=== PATIENT | female | born 1950 | race Caucasian/White ===

== ENCOUNTER → 2017-12-05 | Outpatient (CLI) | payer OTHER | LOC: CIMAGING 10:10 | PROVIDERS: ATTEND Family Medicine Geriatric Medicine | DX: R41.89 Other symptoms and signs involving cognitive functions and awareness (principal); R42 Dizziness and giddiness; R41.3 Other amnesia | CPT/HCPCS: 70450-PO ==

== ENCOUNTER → 2017-12-08 | Outpatient (CLI) | payer OTHER | LOC: BMCIMAGING 14:43 | PROVIDERS: ATTEND Family Medicine Geriatric Medicine | DX: Z13.820 Encounter for screening for osteoporosis (principal); M85.89 Other specified disorders of bone density and structure, multiple sites; Z78.0 Asymptomatic menopausal state ==

== ENCOUNTER 2017-12-14 15:06 | Emergency (ER) | payer OTHER ==
--- NOTE | 2017-12-14 15:24 | EDPHY ---
HPI/HX/ROS/PE/MDM Narrative: CHIEF COMPLAINT: Dizziness, nausea HPI: The patient is a 67 y/o female complaining of dizziness and nausea that began yesterday afternoon. Several weeks ago she had similar episodes, where she felt like the room was spinning around her; these symptoms eventually subsided. On she saw her PCP, Dr. Thornton, and had a normal head CT and blood work. Today, her symptoms are not improving and the nausea is worse than it was several weeks ago. She still feels like the room is spinning and her symptoms worsen when she moves her head. Currently she is denying pain. Denies history of CAD or stroke. Denies neck pain, sore throat, abdominal pain, numbness, paresthesias, or fever. REVIEW OF SYSTEMS: Aside from elements discussed in the HPI, a comprehensive 10-point review of systems was reviewed and is negative. PMH: Denies SOCIAL HISTORY: Single, lives in [place], retired PHYSICAL EXAM: General: Patient is alert, in no acute distress. ENT: Eyes are normal to inspection, no nystagmus. ENT inspection normal. No nystagmus. Neck: Normal inspection. Full range of motion. Respiratory: No respiratory distress. Breath sounds normal bilaterally. Cardiovascular: Regular rate and rhythm. Strong peripheral pulses. Normal cap refill. Abdomen: The abdomen is nontender to palpation. There are no peritoneal signs. There are normal bowel sounds. Back: Normal to inspection. No tenderness to palpation. Skin: Normal color. No rash. Warm and dry. Extremities: Normal appearance. Full range of motion. Neuro: Oriented x3. Normal motor function. Normal sensory function. Normal finger to nose, heel to cruz and rapid alternating movements bilaterally. Portions of this note were transcribed by an ED scribe. I personally performed the history, physical exam, and medical decision making; and confirm the accuracy of the information in the transcribed note. ED Course: 1550: EKG was ordered and interpreted by myself as Trigeminy, otherwise sinus, no ST changes. Please see [employer] system for official reading. 1703: Reassessed patient, she is feeling better after 1L IV NS and 25mg PO Meclizine. I have discussed laboratory findings, which are normal. I have advised her to take Meclizine as prescribed. Return precautions provided; patient is comfortable with this plan. MDM: This patient presents with classic symptoms of BPPV. She shows no sign of cerebellar CVA and has had a recent negative CTH as an outpatient. Her symptoms were improved significantly with meclizine and IVNS and zofran. I think she is safe for continued outpatient management. - Data Points Laboratory Results: Laboratory Results 12/14/17 15:40 12/14/17 15:40 12/14/17 12/14/17 15:40 15:40 WBC 5.23 10^3/uL 10^3/uL (3.80-9.50) RBC 4.50 10^6/uL 10^6/uL (4.18-5.33) Hgb 13.8 g/dL g/dL (12.6-16.3) Hct 41.9 % % (38.0-47.0) MCV 93.1 fL fL (81.5-99.8) MCH 30.7 pg pg (27.9-34.1) MCHC 32.9 g/dL g/dL (32.4-36.7) RDW 12.5 % % (11.5-15.2) Plt Count 178 10^3/uL 10^3/uL (150-400) MPV 9.8 fL fL (8.7-11.7) Neut % (Auto) 85.6 % H % (39.3-74.2) Lymph % (Auto) 11.7 % L % (15.0-45.0) Burke % (Auto) 1.9 % L % (4.5-13.0) Eos % (Auto) 0.0 % L % (0.6-7.6) Baso % (Auto) 0.6 % % (0.3-1.7) Nucleat RBC Rel Count 0.0 % % (0.0-0.2) Absolute Neuts (auto) 4.48 10^3/uL 10^3/uL (1.70-6.50) Absolute Lymphs (auto) 0.61 10^3/uL L 10^3/uL (1.00-3.00) Absolute Monos (auto) 0.10 10^3/uL L 10^3/uL (0.30-0.80) Absolute Eos (auto) 0.00 10^3/uL L 10^3/uL (0.03-0.40) Absolute Basos (auto) 0.03 10^3/uL 10^3/uL (0.02-0.10) Absolute Nucleated RBC 0.00 10^3/uL 10^3/uL (0-0.01) Immature Gran % 0.2 % % (0.0-1.1) Immature Gran # 0.01 10^3/uL 10^3/uL (0.00-0.10) Sodium 138 mEq/L mEq/L (135-145) Potassium 3.6 mEq/L mEq/L (3.5-5.2) Chloride 102 mEq/L mEq/L (97-110) Carbon Dioxide 24 mEq/l mEq/l (22-31) Anion Gap 12 mEq/L mEq/L (8-16) BUN 16 mg/dL mg/dL (7-23) Creatinine 0.6 mg/dL mg/dL (0.6-1.0) Estimated GFR > 60 Glucose 122 mg/dL H mg/dL (70-100) Calcium 9.1 mg/dL mg/dL (8.5-10.4) Troponin I < 0.012 ng/mL ng/mL (0.000-0.034) Medications Given: Discontinued Medications Sodium Chloride (Ns) 1,000 mls @ 0 mls/hr IV EDNOW ONE; Wide Open PRN Reason: Protocol Stop: 12/14/17 15:30 Last Admin: 12/14/17 15:47 Dose: 1,000 mls Meclizine HCl (Meclizine Hcl) 25 mg PO EDNOW ONE Stop: 12/14/17 15:30 Last Admin: 12/14/17 15:47 Dose: 25 mg General Time Seen by Provider: 12/14/17 15:20 Initial Vital Signs: Initial Vital Signs Temperature (C) 36.4 C 12/14/17 15:13 Heart Rate 80 12/14/17 15:13 Respiratory Rate 16 12/14/17 15:13 Blood Pressure 143/86 H 12/14/17 15:13 O2 Sat (%) 95 12/14/17 15:13 O2 Delivery Mode Room Air Allergies/Adverse Reactions: No Known Allergies Allergy (Unverified 12/14/17 15:13) Home Medications: Medication Instructions Recorded Meclizine HCl [Meclizine HCl 25 mg 25 - 50 mg PO BID PRN #14 tab 12/14/17 (RX,OTC)] Departure - Departure Disposition: Home, Routine, Self-Care Clinical Impression: Vertigo Condition: Good Instructions: Vertigo (ED) Additional Instructions: Use meclizine as prescribed. Drink plenty of fluids. Keep your appointment tomorrow. Return to the emergency department immediately for headache, numbness , weakness, severe vertigo, neck pain, inability to tolerate fluids by mouth or other worsening of condition. If symptoms persist for more than 48 hours, followup with your primary care physician and/or a neurologist for further evaluation. Referrals: Perla Thornton MD [Primary Care Provider] - As per Instructions Prescriptions: Meclizine HCl [Meclizine HCl 25 mg (RX,OTC)] 25 - 50 mg PO BID PRN #14 tab PRN Reason: vertigo
[2017-12-14] MEDS ORDERED: NS 1,000 ML IV ONE (15:29)
[2017-12-14] MEDS ORDERED: MECLIZINE HCL 25 MG TAB PO ONE (15:29)
[2017-12-14] MEDS ORDERED: MECLIZINE HCL 25 MG TAB ONE (15:45)
[2017-12-14 15:48] LABS: PLATELET COUNT 178 10^3/uL (150-400)
[2017-12-14 15:50] VITALS: RESP 16; TEMP 97.5
--- NOTE | 2017-12-14 15:52 | CPEKG ---
Heart Rate: 62 RR Interval: 968 P-R Interval: 200 QRSD Interval: 98 QT Interval: 412 QTC Interval: 419 P Streetman: 95 QRS Streetman: 107 T Wave Streetman: 77 EKG Severity - ABNORMAL ECG - EKG Impression: SINUS RHYTHM EKG Impression: VENTRICULAR TRIGEMINY EKG Impression: PROBABLE RIGHT VENTRICULAR HYPERTROPHY Electronically Signed By: Dipak Steinberg 17-Dec-2017 11:16:38
[2017-12-14 17:32] VITALS: BP 122/63; PULSE 67; O2SAT 97
== END 2017-12-14 17:30 | disposition home or self-care (01) ==
DX: R42 Dizziness and giddiness (principal); E86.9 Volume depletion, unspecified

== ENCOUNTER 2017-12-31 21:21 | Emergency (ER) | payer OTHER ==
--- NOTE | 2017-12-31 21:33 | EDPHY ---
H & P Stated Complaint: Dizziness/vomiting Time Seen by Provider: 12/31/17 21:32 HPI/ROS: HPI CHIEF COMPLAINT: Dizziness, nausea, vomiting HISTORY OF PRESENT ILLNESS: Patient is a 67-year-old female she has a history of vertigo benign positional vertigo that she has been suffering what for the past few months. She has been seen in the emergency room as well as her primary care doctor for this previously she has had unremarkable workups for this including a normal negative head CT she presents emergency room this evening for dizziness that started after she would not doing her physical therapy for vertigo. The physical therapy she does requires her to move her head in certain positions that may elicit dizziness. She was doing this and then she started getting dizzy. She describes as room spinning worse when she opens arm eyes arm worse when she moves her head. She denies any chest pain or shortness of breath. She complains of room spinning with nausea she vomited 2- 3 times prior to arrival. She arrived by ambulance to [facility]. She has been taking meclizine intermittently which usually helps with her dizziness however she took it this evening and vomited she is unsure if she kept down for to take effect. She denies any chest pain or shortness of breath. Denies double vision, denies headache or neck pain. She has no posterior circulation symptoms. Past Medical History: Vertigo Past Surgical History: No recent surgery Social History: He denies drugs alcohol tobacco. Retired. Family History: Noncontributory ROS REVIEW OF SYSTEMS: A comprehensive 10 point review of systems is otherwise negative aside from elements mentioned in the history of present illness. Exam Constitutional appears well nontoxic no acute distress, triage nursing summary reviewed, vital signs reviewed, awake/alert. Eyes normal conjunctivae and sclera, EOMI, PERRLA. Subtle horizontal beating nystagmus when she looks to the left, no rotary nystagmus HENT normal inspection, atraumatic, moist mucus membranes, no epistaxis, neck supple/ no meningismus, no raccoon eyes. Respiratory clear to auscultation bilaterally, normal breath sounds, no respiratory distress, no wheezing. Cardiovascular rate normal, regular rhythm, no murmur, no edema, distal pulses normal. Gastrointestinal soft, non-tender, no rebound, no guarding, normal bowel sounds, no distension, no pulsatile mass. Genitourinary no CVA tenderness. Musculoskeletal no midline vertebral tenderness, full range of motion, no calf swelling, no tenderness of extremities, no meningismus, good pulses, neurovascularly intact. Skin pink, warm, & dry, no rash, skin atraumatic. Neurologic awake, alert and oriented x 3, AAOx3, moves all 4 extremities equally, motor intact, sensory intact, CN II-XII intact, normal cerebellar, normal vision, normal speech. Psychiatric normal mood/affect. Heme/Lymph/Immune no lymphadenopathy. Differential Diagnosis: Includes but is not limited to in a particular order vertigo, benign positional vertigo, TIA, CVA, posterior circulation stroke, intracranial bleed, electrolyte disturbance, ACS Medical Decision Making: Clinically I believe she has benign positional vertigo , she had a recent negative head CT scan last month, will give her IV fluids, meclizine, Valium, basic blood work and re-evaluate. Re-evaluation: EKG interpretation by me on record in [employer] system. Impression time of EKG 2153, sinus rhythm rate of [address] elevation or ST depression no significant T-wave abnormalities. No signs of cardiac arrhythmia. 2348: Patient re-evaluated this time resting comfortably in no acute distress. She states her dizziness room spinning sensation is greatly improved with IV fluids IV Valium and meclizine. She is requesting discharge home. Will need to ambulate her around the emergency room to make sure she does not feel nauseous or get dizzy. 1205AM: Patient ambulated well throughout the emergency room without any difficulty. Stable gait. She feels well and would like to go home. Limited prescription for Valium and meclizine. Recommend return precautions she understands return emergency room if develops worsening dizziness vomiting fever questions or concerns. Source: Patient - Personal History Current Tetanus/Diphtheria Vaccine: Yes - Medical/Surgical History Hx Asthma: No Hx Chronic Respiratory Disease: No Hx Diabetes: No Hx Cardiac Disease: No Hx Renal Disease: No Hx Cirrhosis: No Hx Alcoholism: No Hx HIV/AIDS: No Hx Splenectomy or Spleen Trauma: No Other PMH: denies - Social History Smoking Status: Never smoked Constitutional: Initial Vital Signs Temperature (C) 36.4 C 12/31/17 21:28 Heart Rate 72 12/31/17 21:28 Respiratory Rate 18 12/31/17 21:28 Blood Pressure 137/65 H 12/31/17 21:28 O2 Sat (%) 100 12/31/17 21:28 O2 Delivery Mode Room Air O2 (L/minute) 2 Allergies/Adverse Reactions: No Known Allergies Allergy (Unverified 12/31/17 21:27) Home Medications: Medication Instructions Recorded Meclizine HCl [Meclizine HCl 25 mg 25 - 50 mg PO BID PRN #14 tab 12/14/17 (RX,OTC)] Diazepam [Valium 5 MG (*)] 5 mg PO TID PRN #15 tab 12/31/17 Meclizine HCl [Meclizine HCl 25 mg 25 mg PO BID #14 tab 12/31/17 (RX,OTC)] Medical Decision Making - Diagnostics Imaging Results: Imaging Impressions Chest X-Ray 12/31/17 21:38 Impression: No evidence of acute intrathoracic pathology. Probable COPD. - Data Points Laboratory Results: Laboratory Results 12/31/17 21:40 12/31/17 21:40 12/31/17 12/31/17 12/31/17 21:40 21:40 21:40 WBC 6.46 10^3/uL 10^3/uL (3.80-9.50) RBC 4.67 10^6/uL 10^6/uL (4.18-5.33) Hgb 14.6 g/dL g/dL (12.6-16.3) Hct 43.3 % % (38.0-47.0) MCV 92.7 fL fL (81.5-99.8) MCH 31.3 pg pg (27.9-34.1) MCHC 33.7 g/dL g/dL (32.4-36.7) RDW 12.8 % % (11.5-15.2) Plt Count 185 10^3/uL 10^3/uL (150-400) MPV 10.8 fL fL (8.7-11.7) Neut % (Auto) 70.7 % % (39.3-74.2) Lymph % (Auto) 23.8 % % (15.0-45.0) [place] % (Auto) 4.5 % % (4.5-13.0) Eos % (Auto) 0.2 % L % (0.6-7.6) Baso % (Auto) 0.5 % % (0.3-1.7) Nucleat RBC Rel Count 0.0 % % (0.0-0.2) Absolute Neuts (auto) 4.57 10^3/uL 10^3/uL (1.70-6.50) Absolute Lymphs (auto) 1.54 10^3/uL 10^3/uL (1.00-3.00) Absolute Monos (auto) 0.29 10^3/uL L 10^3/uL (0.30-0.80) Absolute Eos (auto) 0.01 10^3/uL L 10^3/uL (0.03-0.40) Absolute Basos (auto) 0.03 10^3/uL 10^3/uL (0.02-0.10) Absolute Nucleated RBC 0.00 10^3/uL 10^3/uL (0-0.01) Immature Gran % 0.3 % % (0.0-1.1) Immature Gran # 0.02 10^3/uL 10^3/uL (0.00-0.10) PT 13.7 SEC SEC (12.0-15.0) INR 1.03 (0.83-1.16) APTT 28.4 SEC SEC (23.0-38.0) Sodium 139 mEq/L mEq/L (135-145) Potassium 3.5 mEq/L mEq/L (3.5-5.2) Chloride 100 mEq/L mEq/L (97-110) Carbon Dioxide 25 mEq/l mEq/l (22-31) Anion Gap 14 mEq/L mEq/L (8-16) BUN 14 mg/dL mg/dL (7-23) Creatinine 0.7 mg/dL mg/dL (0.6-1.0) Estimated GFR > 60 Glucose 120 mg/dL H mg/dL (70-100) Calcium 9.8 mg/dL mg/dL (8.5-10.4) Magnesium 1.9 mg/dL mg/dL (1.6-2.3) Total Bilirubin 0.7 mg/dL mg/dL (0.1-1.4) Conjugated Bilirubin 0.3 mg/dL mg/dL (0.0-0.5) Unconjugated Bilirubin 0.4 mg/dL mg/dL (0.0-1.1) AST 32 IU/L IU/L (14-46) ALT 43 IU/L IU/L (9-52) Alkaline Phosphatase 72 IU/L IU/L (38-126) Troponin I < 0.012 ng/mL ng/mL (0.000-0.034) NT-Pro-B Natriuret Pep 95 pg/mL pg/mL (0-125) Total Protein 7.5 g/dL g/dL (6.3-8.2) Albumin 4.4 g/dL g/dL (3.5-5.0) Lipase 100 IU/L IU/L (23-300) Medications Given: Discontinued Medications Diazepam (Valium) 5 mg IVP EDNOW ONE Stop: 12/31/17 21:39 Last Admin: 12/31/17 21:49 Dose: 5 mg Sodium Chloride (Ns) 1,000 mls @ 0 mls/hr IV EDNOW ONE; Wide Open PRN Reason: Protocol Stop: 12/31/17 21:39 Last Admin: 12/31/17 21:48 Dose: 1,000 mls Meclizine HCl (Meclizine Hcl) 25 mg PO EDNOW ONE Stop: 12/31/17 21:39 Last Admin: 12/31/17 21:49 Dose: 25 mg Departure - Departure Disposition: Home, Routine, Self-Care Clinical Impression: Vertigo Condition: Good Instructions: Vertigo (ED) Additional Instructions: 1. Stay well-hydrated drink lots of fluids. 2. Return emergency room if develops chest pain shortness of breath or severe dizziness. 3. Follow up with her primary care doctor Referrals: Patient,NotPresent [Unknown] - As per Instructions Prescriptions: Diazepam [Valium 5 MG (*)] 5 mg PO TID PRN #15 tab PRN Reason: Spasms Meclizine HCl [Meclizine HCl 25 mg (RX,OTC)] 25 mg PO BID #14 tab
[2017-12-31] MEDS ORDERED: DIAZEPAM 5 MG/ML 1 ML SYR IVP ONE (21:38)
[2017-12-31] MEDS ORDERED: MECLIZINE HCL 25 MG TAB PO ONE (21:38)
[2017-12-31] MEDS ORDERED: NS 1,000 ML IV ONE (21:38)
[2017-12-31 21:46] LABS: PLATELET COUNT 185 10^3/uL (150-400)
[2017-12-31 21:53] LABS: INR 1.03 (0.83-1.16); PROTIME(PATIENT) 13.7 SEC (12.0-15.0)
--- NOTE | 2017-12-31 21:56 | CPEKG ---
Heart Rate: 72 RR Interval: 833 P-R Interval: 184 QRSD Interval: 98 QT Interval: 444 QTC Interval: 486 P Reva: 90 QRS Reva: 95 T Wave Reva: 67 EKG Severity - BORDERLINE ECG - EKG Impression: SINUS RHYTHM EKG Impression: RIGHT AXIS DEVIATION EKG Impression: BORDERLINE PROLONGED QT INTERVAL Electronically Signed By: Dyana Corbin 01-Jan-2018 11:21:45
[2018-01-01] MEDS ORDERED: NS 1,000 ML IV ONE (00:23)
[2018-01-01 01:14] VITALS: BP 131/63
== END 2018-01-01 01:19 | disposition home or self-care (01) ==
LOC: EDUNIT#
DX: R42 Dizziness and giddiness (principal); E86.9 Volume depletion, unspecified
CPT/HCPCS: 71045; 93005; 96361; 96374; 99285; J3360